=== PATIENT | female | born 1980 | race Caucasian/White ===

== ENCOUNTER 2024-06-13 21:21 | Outpatient (CLI) | payer OTHER, SELFPAY ==
[2024-06-13 21:35] VITALS: BP 113/62; PULSE 81
[2024-06-13 21:37] VITALS: PULSE 84; O2SAT 97
[2024-06-13 21:42] VITALS: PULSE 82; O2SAT 97
[2024-06-13 21:47] VITALS: PULSE 83; O2SAT 97
[2024-06-13 21:52] VITALS: PULSE 88; O2SAT 97
[2024-06-13 23:06] LABS: Appearance Urine Clear (Clear); Bilirubin Urine Negative (Negative); Blood Urine Negative (Negative); Color Urine Yellow (Yellow); Glucose Urine Negative (Negative); Ketones Urine Negative (Negative); Leukocyte Esterase Urine Negative (Negative); Nitrite Urine Negative (Negative); Protein Urine 1+ (Negative); Specific Gravity Urine 1.025 (1.000-1.030); Urobilinogen Urine 0.2 (0.2-1.0); pH Urine 6.5 (5.0-8.5)
[2024-06-13 23:07] VITALS: RESP 20; TEMP 36.9
[2024-06-13 23:25] LABS: Clue Cells No Clue Cells Seen (None Seen); RBC Urine 0-2 (0-2); Trichomonas No Trichomonas Seen (None Seen); WBC Urine 0-2 (0-5); Yeast No Yeast Seen (None Seen)
--- NOTE | 2024-06-14 00:03 | P.OBLDTN_ITS ---
OB - Triage/Final Diagnosis Visit Information Date Seen: 06/13/24 Date of evaluation: 06/13/24 Narrative: The patient is a 43 year old 3 para 2001 at 36 1/7 weeks gestation who is usually seen at [facility] for care. She presents with a painful vulva wit h itching that has increased over the last two day. No abnormal odor. She has also noticed swelling of the labia. No LOF, vaginal bleeding. Good movement. She was treated for BV a couple of weeks ago and finished the metronidazole the Sunday of this month. Previous vaginal births were uncomplicated, but the last was 10 years ago. She is from [place] and has been here for 8 months. Her is here with her also and she states she feels safe living in [place]. 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 I suspect it was actually a PAP with a cryo treatment. She also mentions she has anemia and was told to take iron, but she has not been able to since it causes constipation. She asks about an iron infusion. Records were not received prior to discharge. Assessment: Vulvar Varicosities 43yo 36w1d Plan: Wet prep. Vaginitis panel, UA negative. Reviewed Vulvar varicosities and pain associated with them. No other source of itching found, so encouraged epsom salt bath, witchhazel pads, lavender oil prn for comfort. Reviewed indications for treating anemia and encouraged her to follow up with her primary regarding the iron infusion at follow up appt scheduled for . No concern for labor at this time. V Support belt recommended. She states she has one. Applications System Analyst was present for entirety of the visit. Nilam agrees with the plan and has no further questions at this time. Evaluation Laboratory results: Laboratory Tests 06/13/24 Range/Units 23:00 Urine Color Yellow (Yellow) Urine Appearance Clear (Clear) Urine pH 6.5 (5.0-8.5) Ur Specific [place] 1.025 (1.000-1.030) Urine Protein 1+ A (Negative) Urine Glucose (UA) Negative (Negative) Urine Ketones Negative (Negative) Urine Blood Negative (Negative) Urine Nitrite Negative (Negative) Urine Bilirubin Negative (Negative) Urine Urobilinogen 0.2 (0.2-1.0) Ur Leukocyte Esterase Negative (Negative) Urine RBC 0-2 (0-2) Urine WBC 0-2 (0-5) Ur Squamous Epith Cells None (None-Few) Urine Bacteria None (None) Vaginal Trichomonas No Trichomonas Seen (None Seen) Vaginal Yeast No Yeast Seen (None Seen) Vaginal Clue Cells No Clue Cells Seen (None Seen) Vaginal Bacterial Vaginosis Pending Vaginal [place] species Pending Vag C. glabrata/krusei Pending Vag T. vaginalis Pending Vital signs: Vital Signs - 24 hr 06/13/24 21:35 06/13/24 21:37 06/13/24 21:42 Temperature Pulse Rate 81 Respiratory Rate Blood Pressure 113/62 Pulse Oximetry 97 97 06/13/24 21:47 06/13/24 21:52 06/13/24 23:07 Temperature 98.5 F Pulse Rate Respiratory Rate 20 Blood Pressure Pulse Oximetry 97 97 Comments: Vitals Reviewed Constitutional:? Alert and oriented x3 HEENT:? Normocephalic, atraumatic Lungs:? Clear to auscultation bilaterally Heart:? Regular rate and rhythm, no murmur, rub or gallop Abdomen:? Soft, nontender, and gravid. Vertex by Qamar's, confirmed with informal bedside US Extremities:? No edema or erythema Pelvic exam: Vulva with moderate edema of labia majora and minor. Vulvar varicosities noted of bilateral labia and left midline introitus. No lesions, erythema, abnormal discharge or odor noted. Cervix: 1 cm/40%/high station/cervix very posterior and firm NST: 120 bpm/moderate variability/accelerations present/decelerations absent/contractions irregular and mild Final Diagnosis (1) Vulvar varicose veins: Status: Acute (2) High-risk supervision: Status: Acute (3) AMA (advanced maternal age) multigravida 35+: Status: Acute
[2024-06-14 00:09] LABS: Bacterial Vaginosis* Negative (Negative); Candida glab/krus NOT DETECTED (No Detected); Candida species NOT DETECTED (No Detected); Trichomonas vaginalis NOT DETECTED (No Detected)
--- NOTE | 2024-06-14 02:45 | PC.OBNST ---
NST Note NST Note Start: 06/13/24 21:45 Freq: ONCE Status: Active Protocol: Document 06/14/24 00:40 ROBERTA (Rec: 06/14/24 02:45 ROBERTA Desktop) NST Note 3 Para (# of births) 2 EDC 07/10/24 Gestational Age In Weeks & Days 36 Weeks & 2 Days Patient Presented with Complaint(s) of Pain If Pain, describe location Vaginal pain and burning. Reactive Yes Appropriate for Gestational Age Yes MAYRA Juarez RN Date 06/14/24 Reactive Yes Appropriate for Gestational Age Yes MAYRA Conrad RN Date 06/14/24 OB NST charge Yes Complete NST Note via Write Note Yes The provider's electronic signature indicates the NST is reactive/appropriate for gestational age. *Note to provider: If an addendum is required, open the patient's chart and click on the note under the Nurse/Allied Health tab.
== END 2024-06-14 00:50 | disposition home or self-care (01) ==
LOC: OB OUT 21:24 → OB 21:25
PROVIDERS: Visit Provider Midwife
DX: O26.893 Other specified pregnancy related conditions, third trimester (principal); N89.8 Other specified noninflammatory disorders of vagina; Z3A.36 36 weeks gestation of pregnancy
CPT/HCPCS: 59025; 81001; 81003; 81513; 87210; 87481; 87661; G0463